=== PATIENT | female | born 1950 | race Two or more races ===

== ENCOUNTER 2025-01-31 01:33 | Emergency (ER) | payer OTHER, SELFPAY ==
[2025-01-31 01:49] VITALS: BP 156/74; PULSE 64; RESP 16; TEMP 36.9; O2SAT 96; BMI 30.5
--- NOTE | 2025-01-31 02:13 | EKG_ITS ---
[facility] Test Date: 2025-01-31 Pat Name: MADDY REYNOLDS Department: Room: - Gender: Female Return Agent [place]: : [id number] Requested By: Jasiel Boogie Order Number: [id number] Reading MD: Jasiel Boogie Measurements Intervals [place] Rate: 52 P: 42 [place]: 170 QRS: 16 QRSD: 98 T: 37 QT: 431 QTc: 404 Interpretive Statements SINUS BRADYCARDIA POSSIBLE RIGHT VENTRICULAR CONDUCTION DELAY [RSR (QR) IN V1/V2] No previous ECG available for comparison /store/S0/[id number].pdf
--- NOTE | 2025-01-31 02:32 | PD.EDDIZZY ---
ED Dizzyness RME/HPI General Chief Complaint: Dizziness Stated Complaint: DIZZINESS Time Seen by Provider: 01/31/25 01:54 Arrival date/time: 01/31/25 01:33 RME / HPI RME / HPI Narrative: Dr. Stevenson?s Main ED Evaluation: 74yo female with a history of TMJ BIBA from home presents to the ED for a chief complaint of dizziness. Patient states she's had intermittent dizziness for the last 2 weeks, reporting it's significantly worsened over the last 3 days. She describes it as the room is spinning. Patient states she was seen at urgent care today, but was not given a diagnosis. Patient states her dizziness continued to get worse tonight after she woke up, reporting she was unsteady on her feet, so she called 911 to come in for evaluation. Patient denies any N/V, fever, chills, cough, chest pain, shortness of breath or any other associated symptoms. NKA. Related Data Previous Rx's ?Medication ?Instructions ?Recorded hydroxyzine HCl 25 mg tablet 25 mg PO [id number] PRN itching #20 05/11/20 tabs meclizine 25 mg tablet 25 mg PO TID Vertigo #20 tabs 01/31/25 Allergies Allergy/AdvReac Type Severity Reaction Status Date / Time No Known Allergies Allergy Verified 05/11/20 20:59 Review of Systems Review of Systems Systems Reviewed: All systems reviewed, normal except as documented Past Medical History Social History SMOKING STATUS: Never smoker SUBSTANCE USE: does not use ED Exam Narrative Physical exam: GENERAL APPEARANCE: alert and oriented x 4, well-developed, well-nourished, no acute distress VITALS: All vitals were reviewed and the pulse ox is 96% on room air, which is normal according to my interpretation. HEENT: Normocephalic, atraumatic; pupils equal, round, reactive to light; EOMI; mucous membranes pink, moist; oropharynx clear NECK: Supple LUNGS: CTABL; no wheezes, no rales, no rhonchi HEART: Regular rate, regular rhythm; normal S1, S2; no murmurs ABDOMEN: non distended; normal BS; soft, no tenderness, no guarding, no rebound; no masses, no organomegaly, no hernia BACK: no CVA tenderness EXTREMITIES: atraumatic; no edema NEUROLOGIC: awake; alert and oriented x4; cranial nerves II-XII grossly intact; no focal sensory or motor deficits PSYCHIATRIC: appropriate mood and affect SKIN: warm, dry, normal color; no rashes Course Course Course Narrative: 15: I called lab, who states the analyzer for the CMP is down. Quality Measures none Orders Category Date Time Status Interface Developer STAT Care 01/31/25 03:08 Active Continuous Pulse Oximetry ONCE Care 01/31/25 03:08 Active EKG (ED ONLY) *Do not use* NOW Care 01/31/25 02:14 Completed Insert IV STAT Care 01/31/25 03:08 Active EKG (ED Only) Stat Exams 01/31/25 02:13 Ordered XR chest 1V portable Stat Exams 01/31/25 03:08 Taken B-Type Natriuretic Peptide Stat Lab 01/31/25 03:30 Completed CBC Stat Lab 01/31/25 03:30 Completed Comprehensive Metabolic Panel Stat Lab 01/31/25 03:30 Completed Magnesium Stat Lab 01/31/25 03:30 Completed Partial Thromboplastin Time Stat Lab 01/31/25 03:30 Completed Troponin I Stat Lab 01/31/25 03:30 Completed Urinalysis, C/S if Indicated Stat Lab 01/31/25 04:04 Completed Meclizine HCl [Antivert] Med 01/31/25 03:07 Discontinued 25 mg PO X1 ONE Reevaluation(s) Reevaluation #1: Patient states her symptoms have resolved. Patient is stable to be discharged home. Time: 05:44 Vital Signs Vital signs: Vital Signs Temperature 98.4 F 01/31/25 01:49 Pulse Rate 64 01/31/25 01:49 Respiratory Rate 16 01/31/25 01:49 Blood Pressure 156/74 H 01/31/25 01:49 Pulse Oximetry (%) 96 01/31/25 01:49 Oxygen Delivery Method Room Air 01/31/25 01:49 Dizziness MDM Narrative MDM Narrative:: Scribe Attestation: 01/31/25 - Lisa Falcon am scribing for and in the presence of Dr. Stevenson. Patient data External records reviewed:: [facility] previous records (Per chart review, patient has no relevant previous ED visits.) Clinical information provided by:: patient Social determinants that could affect healthcare access:: none Patient has the following chronic illnesses:: TMJ How is presenting disease/condition affected by chronic disease/condition?: uneffected by Evaluation data The following diagnostics were reviewed and interpreted by me:: lab results, radiology exam(s) and EKG tracing(s) Lab and/or radiology exams considered but not ordered:: none Interpretation Summary: CBC normal, CMP normal, BNP normal, Troponin normal, UA unremarkable. CXR shows normal cardiac silhouette, normal mediastinum, no infiltrates, elevated right hemidiaphragm, according to my interpretation. EKG done at 0220, sinus bradycardia, rate of 52, normal axis, no ectopy, no acute ischemia, according to my interpretation. Medications / Prescriptions Medications or Prescriptions considered but not ordered:: none Medication administrations:: Medication Administration History Discontinued Medications Meclizine HCl (Meclizine Hcl 25 Mg Tablet) 25 mg PO X1 ONE Stop: 01/31/25 03:08 Last Admin: 01/31/25 04:07 Dose: 25 mg Documented By: CVL see aove Consultations Consultation(s) initiated? (list below): No Diagnosis Dizziness Differential Diagnosis: other (electrolyte abnormality, central vertigo, peripheral vertigo, vestibular neuropathy) Most likely diagnosis given after review of the tests above:: see clinical impression below Admission Indicated Admission indicated?: not indicated Admission Request Was there a request for admission?: No Disposition Plan Disposition Plan: Discharge Discharge Attestation Discharge Attestation: The patient and all family members were given an opportunity to ask questions and understood the discharge instructions. Discharge instructions specifically effects, indications for sooner follow up or return to the emergency department, and the expected course of current diagnosis. Patient condition: Stable Discharge Plan Plan Patient Disposition: HOME (Self Care) Discharge Disposition comment: Stable for discharge Patient condition on transfer: Stable Prescriptions/Referrals Prescriptions/Med Rec: New meclizine 25 mg tablet 25 mg PO TID Qty: 20 0RF No Action hydroxyzine HCl 25 mg tablet 25 mg PO [id number] PRN (Reason: itching) Qty: 20 0RF Referrals: Mark Dalton MD [Primary Care Provider] - In 1 week Problem List Clinical Impression: Benign paroxysmal positional vertigo Patient/Caregiver Discharge Instructions Discharge Activity: activity as tolerated Education Materials: Anatomy of the Inner Ear, ED BPV Vertigo Additional Instructions: Please return to the emergency department if you have any worsening or any further medical problems and we will help you. Otherwise you should follow-up with your primary care doctor within the next several days There is a prescription for meclizine waiting for you at the pharmacy. This is the medicine we gave you in the ER that made your dizziness resolved. You can take this medicine up to 3 times a day Print Language: Kiswahili Stand Alone Forms: Marlene Award Info., Patient Portal Info Letter
--- NOTE | 2025-01-31 03:08 | XR_ITS ---
Examination: AP chest single view TECHNIQUE: AP portable upright chest single view Date and time: January 31, 2025, 0341 hours Comparison October 14, 2005 INDICATIONS: Onset chest pain today. FINDINGS: Normal heart size. Mild to moderate elevation right hemidiaphragm. No pneumonia or pulmonary edema IMPRESSION: No active disease
[2025-01-31 03:46] LABS: Basophils % (Auto) 0 % (0-2.5); Eosinophils # (Auto) 0.1 Thou/mm3 (0.0-0.5); Eosinophils % (Auto) 1 % (0-10); Hematocrit 46.6 % (36.0-46.0); Hemoglobin 15.3 g/dL (12.0-16.0); Immature Granulocytes % (Auto) 0 % (0-0); Immature Granulocytes Auto 0.02 Thou/mm3 (0.00-0.00); Lymphocytes # (Auto) 1.8 Thou/mm3 (1.0-4.8); Lymphocytes % (Auto) 19 % (10-50); Mean Corpuscular HGB Conc 32.8 g/dl (31.0-37.0); Mean Corpuscular Hemoglobin 26.9 pg (25.0-35.0); Mean Corpuscular Volume 82 fL (80-100); Monocytes # (Auto) 0.6 Thou/mm3 (0.0-0.8); Monocytes % (Auto) 6 % (0-12); Neutrophils % (Auto) 73 % (37-80); Nucleated Red Blood Cell % 0 /100 WBC (0); Platelet Count 167 Thou/mm3 (140-440); RDW Standard Deviation 45.5 fL (36.4-46.3); Red Blood Count 5.69 Miln/mm3 (4.00-5.20); White Blood Count 9.6 Thou/mm3 (3.6-11.0)
[2025-01-31 04:03] LABS: Partial Thromboplastin Time 27.3 Seconds (22.0-36.0)
[2025-01-31] MEDS: MECLIZINE HCL 25 MG TABLET PO (04:07)
[2025-01-31 04:09] VITALS: BP 132/76; PULSE 62; RESP 16; TEMP 36.9; O2SAT 98
[2025-01-31 04:09] LABS: Collection Type, Urine Clean Catch
[2025-01-31 04:41] LABS: Bilirubin,Urine Negative (Negative); Blood,Urine Negative (Negative); Clarity,Urine Clear (Clear/Hazy); Color,Urine Colorless (Lt Yel-Yel); Culture Indicated,Urine Not Indicated; Glucose, Urine 1+ (Negative); Ketones,Urine Negative (Negative); Leukocyte Esterase,Urine Negative (Negative); Nitrite,Urine Negative (Negative); Protein,Urine Negative (Neg - Trace); RBC,Urine < 1 /hpf (0-3); Specific Gravity,Urine 1.015 (1.001-1.035); Squamous Epithelial Cell,Urine < 1 /hpf (0-5); Urobilinogen,Urine Negative mg/dL (0.0-1.0); WBC,Urine 1 /hpf (0-5)
[2025-01-31 05:14] LABS: Alanine Aminotransferase 18 U/L (10-49); Albumin, Serum 4.4 gm/dL (3.4-4.8); Albumin/Globulin Ratio 1.8 (1.2-2.2); Alkaline Phosphatase 70 U/L (46-116); Anion Gap 11 (7-16); Aspartate Amino Transferase 17 U/L (0-34); BUN/Creatinine Ratio 20 Ratio (12-20); Bilirubin,Total 0.6 mg/dL (0.3-1.2); Blood Urea Nitrogen 16 mg/dL (9-23); Calcium 9.1 mg/dL (8.3-10.6); Calcium (Corrected) 9.1 mg/dL (8.5-10.1); Carbon Dioxide 30.1 mMol/L (20.0-31.0); Chloride 103 mMol/L (98-107); Creatinine (Component) 0.8 mg/dL (0.6-1.3); Estimated Creatinine Clearance 60.6 mL/min (>60); Globulin 2.5 gm/dL (2.3-3.5); Glucose 134 mg/dL (74-106); Magnesium 2.2 mg/dL (1.6-2.6); Osmolality,Calculated 290 (275-295); Potassium 3.7 mMol/L (3.4-5.1); Sodium 144 mMol/L (136-145); Total Protein 6.9 gm/dL (5.7-8.2); eGFR > 60 See Note
[2025-01-31 05:35] LABS: Troponin I < 0.002 ng/mL (0.0-0.045)
[2025-01-31 05:36] LABS: B-Type Natriuretic Peptide 59 pg/mL (0-100)
[2025-01-31 06:03] VITALS: RESP 18
== END 2025-01-31 06:27 | disposition home or self-care (01) ==
PROVIDERS: Emergency Provider Emergency Medicine; PCP Family Medicine
DX: H81.10 Benign paroxysmal vertigo, unspecified ear (principal); R00.1 Bradycardia, unspecified
CPT/HCPCS: 36415; 71045; 80053; 81001; 83735; 83880; 84484; 85025; 85730; 93005; 99283; A9270